=== PATIENT | female | born 1990 | race African-American/Black ===

== ENCOUNTER 2023-07-23 13:45 | Emergency (ER) | payer MEDICAID, OTHER ==
[~2023-07-23] VITALS: Ht 165.1 cm; Wt 64.0 kg
[2023-07-23 13:49] VITALS: O2SAT 98
[2023-07-23] MEDS: BACITRACIN ZINC OINT UDPKT TOP ONE (15:15)
[2023-07-23 15:24] VITALS: BP 130/90; PULSE 92; RESP 18; TEMP 98.5
== END 2023-07-23 15:51 | disposition home or self-care (01) ==
LOC: ER 13:45
DX: S61.412A Laceration without foreign body of left hand, initial encounter (principal); Z88.2 Allergy status to sulfonamides; Y04.0XXA Assault by unarmed brawl or fight, initial encounter; Y93.89 Activity, other specified; Y92.89 Other specified places as the place of occurrence of the external cause; Y99.8 Other external cause status
CPT/HCPCS: 12002; 73120; 99283